=== PATIENT | male | born 1990 | race African-American/Black ===

== ENCOUNTER 2022-01-01 09:35 | Emergency (ER) | payer SELFPAY ==
[2022-01-01] MEDS ORDERED: CHERRY SYRUP 10 ML UDC PO ONE (11:57)
[2022-01-01] MEDS ORDERED: DEXAMETHASONE 10 MG/ML VIAL PO STA (11:57)
--- NOTE | 2022-01-01 12:00 | ED Physician Documentation ---
PD HPI UPPER EXT INJURY - Stated complaint Stated Complaint: WRIST PX - Chief complaint Chief Complaint: Ext Problem - History obtained from History obtained from: Patient - History of Present Illness Location: Left, Wrist Type of injury: Other (overuse at work) Where injury occurred: Work Timing - onset: How many days ago (5) Timing - duration: Days (5) Timing - details: Gradual onset, Still present Improved by: Rest, Immobilization Worsened by: Moving, Palpating Associated symptoms: No: Weakness, Numbness, Tingling, Swelling Contributing factors: No: Anticoagulated Similar symptoms before: Has not had sx before Recently seen: Not recently seen - Additonal information Additional information: 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 He recalls that he does not know of any specific injury to the area but 5 days ago at work he was working excessively on large tires and he believes this may have strained his forearm. He has not had this happen to him previously. He has not been working with this large equipment until recently. Review of Systems Constitutional: denies: Fever Eyes: denies: Decreased vision Ears: denies: Ear pain Nose: denies: Congestion Throat: denies: Sore throat Respiratory: denies: Cough GI: denies: Vomiting PD PAST MEDICAL HISTORY - Present Medications Home Medications: Ambulatory Orders Medication Instructions Recorded Confirmed No Known Home Medications 01/01/22 01/01/22 - Allergies Allergies/Adverse Reactions: Allergies Allergy/AdvReac Type Severity Reaction Status Date / Time No Known Drug Allergies Allergy Verified 01/01/22 10:02 PD ED PE NORMAL - Vitals Vital signs reviewed: Yes (normal) - General General: Alert and oriented X 3, No acute distress, Well developed/nourished - HEENT HEENT: Atraumatic, PERRL, EOMI - Respiratory Respiratory: No respiratory distress - Derm Derm: Normal color, Warm and dry, No rash - Extremities Extremities: No deformity, No edema, Other (mild tenderness to the volar and dorsal forearm. pain with flexion extension of wrist is to the forearm and dorsal wrist. No swelling. 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, No motor deficit, No sensory deficit, Normal speech Eye Opening: Spontaneous Motor: Obeys Commands Verbal: Oriented GCS Score: 15 - Psych Psych: Normal mood, Normal affect Results - Vitals Vitals: Vital Signs - 24 hr 01/01/22 01/01/22 09:58 12:35 Temperature 36.6 C 36.6 C Heart Rate 64 68 Respiratory 16 16 Rate Blood Pressure 120/75 125/74 O2 Saturation 100 99 Oxygen O2 Source Room air - Rads (name of study) wrist' Radiology: Prelim report reviewed (Impression: Unremarkable left wrist radiographs.), EMP read indepedently, See rad report PD MEDICAL DECISION MAKING - ED course Complexity details: considered differential, d/w patient ED course: 31-year-old male with a myofascial strain to his forearms is administered dexamethasone 10 mg orally I encouraged the patient to take some ibuprofen as needed for pain and we will put him out of work for 5 days. Departure - Departure Disposition: 01 Home, Self Care Clinical Impression: Acute myofascial strain Instructions: ED Strain Muscle Ext Follow-Up: [facility] [Provider Group] Comments: Param today looks like you have a myofascial strain or a strain between the muscle and the tendons from over use of your forearms. The recommendation is to reduce your activity entirely for at least 5 days and to use ibuprofen for pain control. The expectation is to have resolution of this pain, and your arms should be stronger with resolution. Forms: Activity restrictions Discharge Date/Time: 01/01/22 12:38
[2022-01-01 12:37] VITALS: BP 125/74
--- NOTE | 2022-01-01 12:40 | XRAY Report ---
PROCEDURE: Wrist 4 View LT INDICATIONS: dorsal wrist pain TECHNIQUE: 4 views of the wrist were acquired. COMPARISON: None FINDINGS: Bones: No fractures or dislocations. No suspicious bony lesions. Scaphoid view: Unremarkable Soft tissues: No suspicious soft tissue calcifications. IMPRESSION: Unremarkable left wrist radiographs Reviewed by: Kristopher Yu MD on 01/01/2022 11:39 AM [email or web address] Approved by: Kristopher Yu MD on 01/01/2022 11:39 AM [facility] Station ID: [id number]
== END 2022-01-01 12:38 | disposition home or self-care (01) ==
LOC: ED 09:35
DX: S66.812A Strain of other specified muscles, fascia and tendons at wrist and hand level, left hand, initial encounter (principal); X50.0XXA Overexertion from strenuous movement or load, initial encounter
CPT/HCPCS: 73110; 99282; 99283; A9270

== ENCOUNTER 2023-03-12 10:30 | Outpatient (CLI) | payer OTHER | END 2023-03-12 10:45 | disposition home or self-care (01) | LOC: LAB.N 10:30 | PROVIDERS: ATTEND Registered Nurse | DX: K21.9 Gastro-esophageal reflux disease without esophagitis (principal); R11.10 Vomiting, unspecified; R53.83 Other fatigue | CPT/HCPCS: 36415; 80053; 83690; 84443; 84478; 85025 ==

== ENCOUNTER 2023-03-17 15:34 | Outpatient (CLI) | payer OTHER ==
[2023-03-17 20:59] LABS: BASOPHILS # (AUTO) 0.1 10^3/uL (0.0-0.1); BASOPHILS % (AUTO) 0.6 %; EOSINOPHILS # (AUTO) 0.1 10^3/uL (0.0-0.7); EOSINOPHILS % (AUTO) 1.1 %; HCT - HEMATOCRIT 47.4 % (42.0-52.0); HGB - HEMOGLOBIN 15.5 g/dL (14.0-18.0); LYMPHOCYTES # (AUTO) 2.4 10^3/uL (1.5-3.5); LYMPHOCYTES % (AUTO) 21.1 %; MEAN CORPUSCULAR HEMOGLOBIN 26.8 pg (27.0-31.0); MEAN CORPUSCULAR HGB CONC 32.7 g/dL (32.0-36.0); MEAN PLATELET VOLUME 10.1 fL (7.4-11.4); MONOCYTES # (AUTO) 0.7 10^3/uL (0.0-1.0); MONOCYTES % (AUTO) 5.9 %; NEUTROPHILS % (AUTO) 71.1 %; PLT - PLATELET COUNT 325 10^3/uL (130-450); RED BLOOD COUNT 5.78 10^6/uL (4.70-6.10); RED CELL DISTRIBUTION WIDTH 13.3 % (12.0-15.0); WHITE BLOOD COUNT 11.2 x10^3/uL (4.8-10.8)
[2023-03-17 21:15] LABS: ALBUMIN 4.7 g/dL (3.2-5.5); ALBUMIN/GLOBULIN RATIO 1.5 (1.0-2.2); BILIRUBIN,TOTAL 0.4 mg/dL (0.2-1.0); CALCIUM 9.9 mg/dL (8.5-10.3); POTASSIUM 4.3 mmol/L (3.5-4.5); TOTAL PROTEIN 7.9 g/dL (6.4-8.9)
[2023-03-17 21:24] LABS: THYROID STIMULATING HORMONE 1.84 uIU/mL (0.34-5.60)
== END 2023-03-17 15:35 | disposition home or self-care (01) ==
LOC: LAB.N 15:34
PROVIDERS: ATTEND Registered Nurse
DX: K21.9 Gastro-esophageal reflux disease without esophagitis (principal); R11.10 Vomiting, unspecified; R53.83 Other fatigue; K52.9 Noninfective gastroenteritis and colitis, unspecified
CPT/HCPCS: 36415; 80053; 83690; 84443; 84478; 85025; 86364

== ENCOUNTER 2023-04-20 13:19 | Emergency (ER) | payer OTHER ==
[2023-04-20 14:30] LABS: RAPID STREP SCREEN Negative (Negative)
[2023-04-20 14:57] LABS: B. PARAPERTUSSIS- RESP PCR PAN NOT DETECTED; B. PERTUSSIS- RESP PCR PANEL NOT DETECTED; C. PNEUMONIAE- RESP PCR PANEL NOT DETECTED; CORONAVIRUS 229E-RESP PCR NOT DETECTED; CORONAVIRUS HKU1-RESP PCR NOT DETECTED; CORONAVIRUS NL63-RESP PCR NOT DETECTED; CORONAVIRUS OC43-RESP PCR NOT DETECTED; HUMAN METAPNEUMOVIRUS NOT DETECTED; INFLUENZA A- RESP PCR PANEL NOT DETECTED; INFLUENZA B - RESP PCR PANEL NOT DETECTED; M. PNEUMONIAE- RESP PCR PANEL NOT DETECTED; PARAINFLUENZA VIRUS 1 NOT DETECTED; PARAINFLUENZA VIRUS 2 NOT DETECTED; PARAINFLUENZA VIRUS 3 NOT DETECTED; PARAINFLUENZA VIRUS 4 NOT DETECTED; RHINOVIRUS/ENTEROVIRUS NOT DETECTED; RSV- RESP PCR PANEL NOT DETECTED; SARS-CoV-2 -RESP PCR PANEL NOT DETECTED
[2023-04-20] MEDS: CHERRY SYRUP 10 ML UDC PO ONE (15:39)
[2023-04-20] MEDS: DEXAMETHASONE 10 MG/ML VIAL PO STA (15:39)
--- NOTE | 2023-04-20 17:42 | ED Physician Documentation ---
History of Present Illness - Stated complaint Stated Complaint: CP/THROAT SWELLING - Chief complaint Chief Complaint: Heent - Additonal information Additional information: Patient 23-year-old male presenting to the emergency department with cough, congestion, sore throat, chest pain. [place] noted that he had prominent enlarged tonsils and sent him here for evaluation of tonsillitis as well as to get an EKG for his chest pain. He reports that he only has pain in the center of his chest when he is coughing. Denies any history of cardiac issues, shortness of breath while at rest but does report that he feels as though his overall exercise tolerance and stamina is decreased for the last few days. Review of Systems Constitutional: denies: Fever Eyes: denies: Loss of vision Ears: denies: Loss of hearing, Tinnitus/ringing Nose: reports: Rhinorrhea / runny nose, Congestion Cardiac: reports: Chest pain / pressure Respiratory: reports: Cough : denies: Dysuria Skin: denies: Rash PD PAST MEDICAL HISTORY - Past Medical History Past Medical History: Yes Psych: Depression, Anxiety - Past Surgical History Past Surgical History: No - Present Medications Home Medications: Ambulatory Orders Medication Instructions Recorded Confirmed Azithromycin [Zithromax] 0 mg PO DAILY #4 tablet 04/20/23 Oxymetazoline HCl [12 Hour Nasal 30 ml NS Q4HR #30 ml 04/20/23 [place]] Pseudoephedrine HCl [Sudafed 12 120 mg PO BID #15 tab 04/20/23 Hour] - Allergies Allergies/Adverse Reactions: Allergies Allergy/AdvReac Type Severity Reaction Status Date / Time No Known Drug Allergies Allergy Verified 01/01/22 10:02 - Social History Does the pt smoke?: No Smoking Status: Never smoker PD ED PE NORMAL - Vitals Vital signs reviewed: Yes - General General: Alert and oriented X 3, No acute distress, Well developed/nourished - HEENT HEENT: Atraumatic, PERRL, EOMI, Ears normal, Moist mucous membranes, Pharynx benign - Neck Neck: Supple, no meningeal sign, No bony TTP, No adenopathy, Thyroid normal, No JVD - Cardiac Cardiac: RRR, No gallop, Strong equal pulses - Respiratory Respiratory: No respiratory distress, Clear bilaterally - Abdomen Abdomen: Normal bowel sounds, Non tender - Male Male : Deferred - Rectal Rectal: Deferred - Back Back: No CVA TTP - Derm Derm: Normal color - Extremities Extremities: No deformity Results - Vitals Vitals: Vital Signs - 24 hr 04/20/23 13:43 Temperature 36.5 C Heart Rate 73 Respiratory 18 Rate Blood Pressure 138/83 H O2 Saturation 99 Oxygen O2 Source Room air - EKG (time done) 1526 EKG releavant findings:: EKG personally interpreted by author of this note. Relevant findings are: Sinus rhythm with rate 63 bpm. Normal axis. Normal DC, QRS, QTc intervals. No ST segment elevations or T wave inversions. - Labs Labs: Laboratory Tests 04/20/23 04/20/23 13:51 13:51 Nasal Adenovirus (PCR) NOT DETECTED Nasal B. parapertussis DNA (PCR) NOT DETECTED Nasal Coronavir 229E PCR NOT DETECTED Nasal Coronavir HKU1 PCR NOT DETECTED Nasal Coronavir NL63 PCR NOT DETECTED Nasal Coronavir OC43 PCR NOT DETECTED Nasal Enterovir/Rhinovir PCR NOT DETECTED Nasal Influenza B PCR NOT DETECTED Nasal Influenza A PCR NOT DETECTED Nasal Parainfluen 1 PCR NOT DETECTED Nasal Parainfluen 2 PCR NOT DETECTED Nasal Parainfluen 3 PCR NOT DETECTED Nasal Parainfluen 4 PCR NOT DETECTED Nasal RSV (PCR) NOT DETECTED Nasal B.pertussis DNA PCR NOT DETECTED Nasal C.pneumoniae (PCR) NOT DETECTED Ross Human Metapneumo PCR NOT DETECTED Nasal M.pneumoniae (PCR) NOT DETECTED Nasal SARS-CoV-2 (PCR) NOT DETECTED Group A Strep Rapid Negative PD Medical Decision Making - ED course Complexity details: reviewed results, re-evaluated patient, d/w patient ED course: Patient otherwise healthy 23-year-old male presenting to the emergency department with chief complaints cough, congestion, chest pain, sore throat. Afebrile, he medically stable arrival to the emergency department. Notably had enlarged tonsils without exudates. No particular jugulodigastric or posterior cervical adenopathy was appreciated. He did have a small amount of fluid behind his left tympanic membrane but no signs of erythema that would be suggestive of middle ear infection. Overall he had clear aeration in all lung escobar as well as a normal cardiac exam here in the emergency department. I did obtain an EKG which was negative for indications of acute cardiac ischemia or dysrhythmia. His labs in the emergency department including strep and viral screening were negative. His chest x-ray does have a area of opacification in the left lower lobe and per my interpretation appears to be a small area of consolidation concerning for early or developing pneumonia. Discussed my interpretation of the chest x-ray as well as the findings with the patient and he is agreeable to a course of azithromycin. First dose given here in the emergency department. Additionally he was given a dose of Decadron for his sore throat. Will discharge with short course antibiotic as well as oral and nasal decongestant. Will encourage careful follow-up with primary care doctor. Clear return precautions given prior to discharge. Departure - Departure Disposition: Home, Self Care Clinical Impression: PNA (pneumonia) Qualifiers: Pneumonia type: due to unspecified organism Laterality: left Lung location: lower lobe of lung Qualified Code(s): J18.9 - Pneumonia, unspecified organism Pharyngitis Qualifiers: Pharyngitis/tonsillitis etiology: unspecified etiology Qualified Code(s): J02.9 - Acute pharyngitis, unspecified Instructions: ED Pneumonia Adult Prescriptions: Oxymetazoline HCl [12 Hour Nasal [place]] 30 ml NS Q4HR #30 ml Pseudoephedrine HCl [Sudafed 12 Hour] 120 mg PO BID #15 tab Azithromycin [Zithromax] 0 mg PO DAILY #4 tablet Comments: [facility] The testing performed in the emergency department today was overall very reassuring. Your strep pharyngitis screening test was negative however this will be sent for culture and further testing and if it is positive we will contact you in the next few days. As we discussed I am concerned about a small area of opacification on your chest x-ray that I believe could represent a developing pneumonia. You are given a first dose of antibiotic here in the emergency department. I will be discharging you with a course of antibiotics to begin tomorrow as well as some oral and nasal decongestants to take at home. [id number] Motrin, Tylenol, throat lozenges and salt water gargles can also be very helpful to help with any fever, body ache or sore throat. Otherwise please drink plenty fluids and get plenty of rest. If it anytime you have new or worsening symptoms please return to the emergency department.
[2023-04-20] MEDS: AZITHROMYCIN 250 MG TABLET PO STA (17:51)
[2023-04-20 18:09] VITALS: BP 130/80; O2SAT 100
== END 2023-04-20 18:00 | disposition home or self-care (01) ==
LOC: ED 13:19
DX: J18.9 Pneumonia, unspecified organism (principal); J02.9 Acute pharyngitis, unspecified; Z11.52 Encounter for screening for COVID-19
CPT/HCPCS: 71046; 87070; 87430; 87633; 93005; 99284; A9270

== ENCOUNTER 2023-05-07 13:57 | Emergency (ER) | payer OTHER ==
[2023-05-07 14:43] LABS: BASOPHILS # (AUTO) 0.1 10^3/uL (0.0-0.1); EOSINOPHILS # (AUTO) 0.2 10^3/uL (0.0-0.7); EOSINOPHILS % (AUTO) 2.1 %; HCT - HEMATOCRIT 47.3 % (42.0-52.0); HGB - HEMOGLOBIN 15.6 g/dL (14.0-18.0); LYMPHOCYTES # (AUTO) 2.5 10^3/uL (1.5-3.5); MEAN CORPUSCULAR HEMOGLOBIN 26.8 pg (27.0-31.0); MEAN CORPUSCULAR VOLUME 81.1 fL (80.0-94.0); MEAN PLATELET VOLUME 9.1 fL (7.4-11.4); MONOCYTES # (AUTO) 0.5 10^3/uL (0.0-1.0); MONOCYTES % (AUTO) 7.3 %; NEUTROPHILS # (AUTO) 3.9 10^3/uL (1.5-6.6); NEUTROPHILS % (AUTO) 54.5 %; PLT - PLATELET COUNT 343 10^3/uL (130-450); RED BLOOD COUNT 5.83 10^6/uL (4.70-6.10); RED CELL DISTRIBUTION WIDTH 13.5 % (12.0-15.0); WHITE BLOOD COUNT 7.2 x10^3/uL (4.8-10.8)
[2023-05-07 15:00] LABS: ALBUMIN 4.6 g/dL (3.2-5.5); ALBUMIN/GLOBULIN RATIO 1.2 (1.0-2.2); BILIRUBIN,TOTAL 0.5 mg/dL (0.2-1.0); CALCIUM 9.9 mg/dL (8.5-10.3); CREATININE 0.9 mg/dL (0.6-1.3); TOTAL PROTEIN 8.3 g/dL (6.4-8.9)
[2023-05-07] MEDS ORDERED: MAG HYDROX/AL HYDROX/SIMETH 30 ML UDC PO STA (15:22)
[2023-05-07] MEDS ORDERED: LIDOCAINE VISCOUS 2% 15 ML ORAL SYRINGE MM STA (15:23)
--- NOTE | 2023-05-07 16:03 | ED Physician Documentation ---
PD HPI ABD PAIN - Stated complaint Stated Complaint: STOMACH PX - Chief complaint Chief Complaint: Abd Pain - History obtained from History obtained from: Patient - Additional information Additional information: Patient is a 23-year-old male presenting for evaluation of epigastric abdominal pain for the past 3 days. Patient has a history of indigestion and is on pantoprazole. He also has a long history of reportedly waking up in the middle night with episodes of vomiting. He states he does not have nausea prior to the vomiting. He states that if he does not sleep at night due to his insomnia that he does not have these episodes. He does get Reglan for this. He states that for the last 3 days he has had some upper abdominal discomfort. Nothing makes it better or worse. He does have a lactose intolerance but does enjoy dairy and drinks a lot of milk. He denies eating spicy or citrusy or acidic food but does occasionally have some fried food including over the last few days. No di arrhea. No fever, chest pain or shortness of air. He did see his PCP last week through the [employer] [facility] and was told that if he continues to have symptoms he should have an upper endoscopy by GI. Review of Systems Constitutional: denies: Fever Cardiac: denies: Chest pain / pressure Respiratory: denies: Dyspnea GI: reports: Abdominal Pain, Vomiting. denies: Nausea : denies: Dysuria PD PAST MEDICAL HISTORY - Past Medical History Psych: Depression, Anxiety - Past Surgical History Past Surgical History: No - Present Medications Home Medications: Ambulatory Orders Medication Instructions Recorded Confirmed Metoclopramide [Reglan] 10 mg PO DAILY 05/07/23 Pantoprazole [Protonix] 40 mg PO DAILY 05/07/23 - Allergies Allergies/Adverse Reactions: Allergies Allergy/AdvReac Type Severity Reaction Status Date / Time No Known Drug Allergies Allergy Verified 05/07/23 14:06 - Social History Does the pt smoke?: No Smoking Status: Never smoker Does the pt drink ETOH?: No Does the pt have substance abuse?: No - Immunizations Immunizations are current?: Yes - POLST Patient has POLST: No PD ED PE NORMAL - General General: Alert and oriented X 3, No acute distress, Well developed/nourished - HEENT HEENT: Atraumatic, Moist mucous membranes, Pharynx benign - Neck Neck: Supple, no meningeal sign - Cardiac Cardiac: RRR, Strong equal pulses - Respiratory Respiratory: No respiratory distress, Clear bilaterally - Abdomen Abdomen: Normal bowel sounds, Soft, Non distended, Other (Very mild epigastric tenderness on palpation, no right upper quadrant tenderness Or lower abdominal tenderness) - Derm Derm: Warm and dry - Neuro Neuro: Normal speech Results - Vitals Vitals: Vital Signs - 24 hr 05/07/23 05/07/23 14:00 16:11 Temperature 36.6 C Heart Rate 89 84 Respiratory 17 18 Rate Blood Pressure 136/70 H 142/108 H O2 Saturation 99 100 Oxygen O2 Source Room air - Labs Labs: Laboratory Tests 05/07/23 05/07/23 14:39 14:39 WBC 7.2 RBC 5.83 Hgb 15.6 Hct 47.3 MCV 81.1 MCH 26.8 L MCHC 33.0 RDW 13.5 Plt Count 343 MPV 9.1 Neut # (Auto) 3.9 Lymph # (Auto) 2.5 [place] # (Auto) 0.5 Eos # (Auto) 0.2 Baso # (Auto) 0.1 Absolute Nucleated RBC 0.00 Nucleated RBC % 0.0 Sodium 135 Potassium 4.0 Chloride 105 Carbon Dioxide 25 Anion Gap 5.0 L BUN 8 Creatinine 0.9 Estimated GFR (MDRD) 126 Glucose 128 H Calcium 9.9 Total Bilirubin 0.5 AST 18 ALT 28 Alkaline Phosphatase 98 Total Protein 8.3 Albumin 4.6 Globulin 3.7 Albumin/Globulin Ratio 1.2 Lipase 18 PD Medical Decision Making - ED course Complexity details: reviewed results, re-evaluated patient, d/w patient ED course: Patient is a 23-year-old male presenting for evaluation of epigastric abdominal pain. Very mild tenderness noted on exam. He has been tolerating p.o. today. Denies drug or alcohol use but does vape. No abdominal surgeries. CBC and chemistries were obtained and reviewed without significant findings. Feeling somewhat better after GI cocktail. He is already on Reglan and pantoprazole. Discussed diet modifications as well as need for close follow-up with PCP as he likely needs an upper endoscopy which were not able to do in the emergency department. Patient counseled on concerning symptoms to return for. Departure - Departure Disposition: 01 Home, Self Care Clinical Impression: Epigastric abdominal pain Condition: Stable Instructions: ED Epigastric Pain [facility] Follow-Up: [facility] [Provider Group] Comments: Your blood tests today are reassuring with normal electrolytes. I do think you need a referral to a tire inspector and need a procedure called an upper endoscopy which is a procedure where the GI doctor would take a camera to take a look into your esophagus and stomach. In the meanwhile you do need to eliminate anything that could be exacerbating your indigestion or GERD including dairy, spicy, tomato, citrusy foods. Please have close follow-up with your primary care doctor. Return to the ER with any worsening. Forms: PCP List, Activity restrictions Discharge Date/Time: 05/07/23 16:11
[2023-05-07 16:18] VITALS: BP 142/108; O2SAT 100
== END 2023-05-07 16:11 | disposition home or self-care (01) ==
LOC: ED 13:57
DX: R10.13 Epigastric pain (principal)
CPT/HCPCS: 36415; 80053; 83690; 85025; 99283; A9270

== ENCOUNTER 2023-05-19 02:24 | Emergency (ER) | payer OTHER ==
--- NOTE | 2023-05-19 09:10 | XRAY Report ---
PROCEDURE: Chest 1V INDICATIONS: lower R CP TECHNIQUE: One view of the chest was acquired. COMPARISON: 04.20.23 FINDINGS: Surgical changes and devices: None. Lungs and pleura: No pleural effusions or pneumothorax. Lungs are clear. Mediastinum: Mediastinal contours appear normal. Heart size is normal. Bones and chest wall: No suspicious bony lesions. Overlying soft tissues appear unremarkable. IMPRESSION: No acute cardiopulmonary process. Reviewed by: Shaggy Santos MD on 05/19/2023 9:09 AM [facility] Approved by: Shaggy Santos MD on 05/19/2023 9:09 AM [facility] Station ID: [id number]
[2023-05-19 09:24] LABS: BASOPHILS # (AUTO) 0.1 10^3/uL (0.0-0.1); BASOPHILS % (AUTO) 1.2 %; EOSINOPHILS # (AUTO) 0.1 10^3/uL (0.0-0.7); EOSINOPHILS % (AUTO) 2.4 %; HCT - HEMATOCRIT 45.6 % (42.0-52.0); HGB - HEMOGLOBIN 14.9 g/dL (14.0-18.0); LYMPHOCYTES # (AUTO) 2.4 10^3/uL (1.5-3.5); LYMPHOCYTES % (AUTO) 41.5 %; MEAN CORPUSCULAR HEMOGLOBIN 26.9 pg (27.0-31.0); MEAN CORPUSCULAR HGB CONC 32.7 g/dL (32.0-36.0); MEAN CORPUSCULAR VOLUME 82.3 fL (80.0-94.0); MEAN PLATELET VOLUME 9.2 fL (7.4-11.4); MONOCYTES # (AUTO) 0.6 10^3/uL (0.0-1.0); MONOCYTES % (AUTO) 10.1 %; NEUTROPHILS # (AUTO) 2.6 10^3/uL (1.5-6.6); NEUTROPHILS % (AUTO) 44.6 %; PLT - PLATELET COUNT 335 10^3/uL (130-450); RED BLOOD COUNT 5.54 10^6/uL (4.70-6.10); RED CELL DISTRIBUTION WIDTH 13.2 % (12.0-15.0); WHITE BLOOD COUNT 5.9 x10^3/uL (4.8-10.8)
[2023-05-19 09:41] LABS: ALBUMIN 4.6 g/dL (3.2-5.5); ALBUMIN/GLOBULIN RATIO 1.5 (1.0-2.2); BILIRUBIN,TOTAL 0.5 mg/dL (0.2-1.0); POTASSIUM 4.5 mmol/L (3.5-4.5); TOTAL PROTEIN 7.6 g/dL (6.4-8.9)
--- NOTE | 2023-05-19 10:44 | ED Physician Documentation ---
PD HPI ABD PAIN - Stated complaint Stated Complaint: N/V/D/R SIDE PX - Chief complaint Chief Complaint: Abd Pain - History obtained from History obtained from: Patient - Additional information Additional information: Patient is a 23-year-old male presenting for ongoing issues with vomiting at night, difficulty with sleep and having intermittent episodes of right upper quadrant pain. Patient states that this has been ongoing for at least 7 months. He was seen here earlier this year with similar symptoms due to difficulties with sleep and reports waking up at night vomiting. He is post to have follow- up at the [facility] but this is not for another few weeks. He continues on omeprazole. He states that he has been trying to avoid any foods that may trigger his symptoms. He states the last 2 days he has had intermittent episodes of pain in the right upper quadrant. Last night he had eggs and rice with onions. He states that he did have an episode of emesis last night. He is prescribed Reglan which she states does not really help him. Denies fever. No chest pain, shortness of air, diarrhea. States he often has difficulty with sleeping and has not really slept well in the last 2 days. Has tried melatonin for this in the past without any improvement. Is concerned he has sleep apnea. Review of Systems Constitutional: denies: Fever Cardiac: denies: Chest pain / pressure Respiratory: denies: Dyspnea GI: reports: Abdominal Pain, Vomiting. denies: Diarrhea : denies: Dysuria PD PAST MEDICAL HISTORY - Past Medical History Past Medical History: Yes Psych: Depression, Anxiety - Past Surgical History Past Surgical History: No - Present Medications Home Medications: Ambulatory Orders Medication Instructions Recorded Confirmed Omeprazole Magnesium [Prilosec] 10 mg PO DAILY 05/19/23 05/19/23 Venlafaxine [Effexor] 37.5 mg PO DAILY 05/19/23 05/19/23 - Allergies Allergies/Adverse Reactions: Allergies Allergy/AdvReac Type Severity Reaction Status Date / Time lactose AdvReac Cramps Verified 05/19/23 03:15 - Social History Does the pt smoke?: Yes Smoking Status: Current every day smoker Does the pt drink ETOH?: No Does the pt have substance abuse?: No - Immunizations Immunizations are current?: Yes - POLST Patient has POLST: No PD ED PE NORMAL - General General: Alert and oriented X 3, No acute distress, Well developed/nourished - HEENT HEENT: Atraumatic, Moist mucous membranes, Pharynx benign - Neck Neck: Supple, no meningeal sign - Cardiac Cardiac: RRR, Strong equal pulses - Respiratory Respiratory: No respiratory distress, Clear bilaterally - Abdomen Abdomen: Normal bowel sounds, Soft, Non tender, Non distended - Derm Derm: Warm and dry - Neuro Neuro: Normal speech Results - Vitals Vitals: Vital Signs - 24 hr 05/19/23 05/19/23 03:08 10:53 Temperature 36.2 C L 36.4 C L Heart Rate 95 76 Respiratory 15 16 Rate Blood Pressure 134/69 H 149/68 H O2 Saturation 97 100 Oxygen O2 Source Room air - Labs Labs: Laboratory Tests 05/19/23 05/19/23 09:17 09:17 WBC 5.9 RBC 5.54 Hgb 14.9 Hct 45.6 MCV 82.3 MCH 26.9 L MCHC 32.7 RDW 13.2 Plt Count 335 MPV 9.2 Neut # (Auto) 2.6 Lymph # (Auto) 2.4 Real # (Auto) 0.6 Eos # (Auto) 0.1 Baso # (Auto) 0.1 Absolute Nucleated RBC 0.00 Nucleated RBC % 0.0 Sodium 135 Potassium 4.5 Chloride 104 Carbon Dioxide 24 Anion Gap 7.0 BUN 10 Creatinine 1.0 Estimated GFR (MDRD) 111 Glucose 125 H Calcium 10.0 Total Bilirubin 0.5 AST 20 ALT 29 Alkaline Phosphatase 96 Total Protein 7.6 Albumin 4.6 Globulin 3.0 Albumin/Globulin Ratio 1.5 Lipase 14 PD Medical Decision Making - ED course Complexity details: reviewed results, d/w patient ED course: Patient is a 23-year-old male Presenting for evaluation of ongoing episodes of vomiting and difficulty with sleep. He is awaiting a referral to GI from the [facility]. Patient had a prolonged wait time due to ED volumes. On my evaluation he has no tenderness on exam. Vital signs are stable. Labs including CBC and chemistries were obtained and reviewed and without significant findings. When I asked the patient where his pain is he points to the lower right lower rib border so an x-ray was obtained which I reviewed and I see no signs of fracture or other issues. An ultrasound was also ordered and there is no biliary pathology seen. On my reevaluation patient is sleeping. He says that he has had ongoing issues with sleep. Sometimes he will take a nap in the middle of the day and sleep for 8 hours. Breast understanding about his ongoing symptoms but that workup here today in the emergency department has not revealed an emergent cause for his symptoms and that he likely needs more testing such as referral to GI and possibly a sleep study. For the time being I did recommend a trial of Benadryl at night to see if this helps with his sleep as well as could help with the nausea and vomiting. Patient counseled on concerning symptoms to return for. Departure - Departure Disposition: Home, Self Care Clinical Impression: Vomiting, Sleep difficulties Condition: Stable Instructions: ED Insomnia, ED Nausea Vomiting, ED Epigastric Pain O Follow-Up: [facility] [Provider Group] Comments: Your testing today does not identify an emergent condition that needs immediate treatment but you do need close follow-up with your PCP at the [facility] as you likely need further testing. You may need a test for sleep apnea and an EGD which is a scope that looks inside your stomach. You can try Benadryl 25 mg at night to see if this helps you sleep. I would limit napping during the daytime. Your electrolytes are normal. Please continue to avoid anything that might irritate your stomach and do not sleep right after eating. Return to the ER with any new or worsening symptoms. Forms: PCP List, Activity restrictions Discharge Date/Time: 05/19/23 10:56
[2023-05-19 11:02] VITALS: BP 149/68; O2SAT 100
--- NOTE | 2023-05-19 11:22 | Ultrasound Report ---
PROCEDURE: Abdomen Limited INDICATIONS: RUQ pain TECHNIQUE: Real-time focused scanning was performed of the abdomen, with image documentation. COMPARISONS: None. FINDINGS: The liver measures 12 cm. Increased echogenicity is seen. Gallbladder is unremarkable. No stones or focal tenderness. Biliary tree and pancreas are not well seen due to bowel gas. Right kidney measures 9 cm. IMPRESSION: Increased hepatic echogenicity is nonspecific, most commonly seen with steatosis. No acute gallbladder abnormality. Biliary tree not well seen due to bowel gas. Reviewed by: Jayy Guerra MD on 05/19/2023 11:21 AM PST Approved by: Jayy Guerra MD on 05/19/2023 11:21 AM PST Station ID: [id number]
== END 2023-05-19 10:56 | disposition home or self-care (01) ==
LOC: ED 02:24
DX: R11.2 Nausea with vomiting, unspecified (principal); F17.200 Nicotine dependence, unspecified, uncomplicated; Z72.820 Sleep deprivation
CPT/HCPCS: 36415; 80053; 83690; 85025; 99283; 99284

== ENCOUNTER 2023-05-28 00:36 | Emergency (ER) | payer OTHER ==
[2023-05-28] MEDS ORDERED: HYDROmorphone 1 MG/ML CARPUJECT ONE (01:42)
--- NOTE | 2023-05-28 02:28 | ED Physician Documentation ---
History of Present Illness - Stated complaint Stated Complaint: ABD PX - Chief complaint Chief Complaint: General - History obtained from History obtained from: Patient - Additonal information Additional information: The pt comes to the ED for CC of heartburn feeling in his chest. The pt has been seen many times for chest and abdominal discomfort, with no specific findings. He is being referred to [facility] by [facility] [employer]. No SOB. No fevers or cough. No LE swelling. No other complaints at this time. Sx started tonight. PD PAST MEDICAL HISTORY - Past Medical History GI: GERD Psych: Depression, Anxiety - Past Surgical History Past Surgical History: No - Present Medications Home Medications: Ambulatory Orders Medication Instructions Recorded Confirmed Omeprazole Magnesium [Prilosec] 10 mg PO DAILY 05/19/23 05/28/23 Venlafaxine [Effexor] 37.5 mg PO DAILY 05/19/23 05/28/23 - Allergies Allergies/Adverse Reactions: Allergies Allergy/AdvReac Type Severity Reaction Status Date / Time lactose AdvReac Cramps Verified 05/28/23 00:59 - Social History Does the pt smoke?: Yes Smoking Status: Current every day smoker Does the pt drink ETOH?: No Does the pt have substance abuse?: No - Immunizations Immunizations are current?: Yes - POLST Patient has POLST: No PD ED PE NORMAL - Vitals Vital signs reviewed: Yes - General General: Alert and oriented X 3, No acute distress - HEENT HEENT: Atraumatic, EOMI, Moist mucous membranes - Neck Neck: Supple, no meningeal sign - Cardiac Cardiac: RRR, No murmur - Respiratory Respiratory: No respiratory distress, Clear bilaterally - Abdomen Abdomen: Soft, Non distended, Other (MIld epigastric tend, no rebound or guarding.) - Derm Derm: Warm and dry - Extremities Extremities: No deformity - Neuro Neuro: Alert and oriented X 3 - Psych Psych: Normal mood, Normal affect Results - Vitals Vitals: Oxygen O2 Source Room air - EKG (time done) 0129 EKG releavant findings:: EKG personally interpreted by author of this note. Relevant findings are: Rate: Rate (enter#) (71) Rhythm: NSR [place]: Normal Intervals: Normal [place] QRS: Normal Ischemia: Normal ST segments Compare to prior EKG: Old EKG unavailable Computer interpretation: Agree with computer - Rads (name of study) CXR Relevant Findings:: Prelim report reviewed, See rad report (Overnight radiologist read: [id number]) PD Medical Decision Making - ED course Complexity details: reviewed old records, reviewed results, re-evaluated patient, considered differential, d/w patient ED course: The pt was worked up with CXR and EKG, both of which were unremarkable. I reviewed the pt's old records, and found that he had been to the ED repeatedly for related sx, and worked up extensively. I did not feel repeat workup was indicated today. The pt was stable for d/c home. We have discussed the usual indications for follow-up and return. Departure - Departure Disposition: Home, Self Care Clinical Impression: Chest pain Qualifiers: Chest pain type: unspecified Qualified Code(s): R07.9 - Chest pain, unspecified Insomnia Qualifiers: Insomnia type: unspecified Qualified Code(s): G47.00 - Insomnia, unspecified Condition: Stable Instructions: ED Chest Pain Atypical Unkn Cause Comments: Your EKG and chest x-ray look good. There is no evidence of an emergent condition causing your chest pain. Please continue to work with your primary doctor on getting to the bottom of your symptoms. Forms: PCP List, Activity restrictions Discharge Date/Time: 05/28/23 03:23
[2023-05-28] MEDS: MAG HYDROX/AL HYDROX/SIMETH 30 ML UDC PO STA (02:36)
[2023-05-28] MEDS: LIDOCAINE VISCOUS 2% 15 ML ORAL SYRINGE MM STA (02:36)
[2023-05-28] MEDS: HYDROmorphone 1 MG/ML CARPUJECT IVP ONE (02:40)
[2023-05-28 03:31] VITALS: BP 152/90; O2SAT 99
--- NOTE | 2023-05-28 09:07 | XRAY Report ---
PROCEDURE: Chest 1V INDICATIONS: chest pain TECHNIQUE: One view of the chest was acquired. COMPARISON: Single view the chest dated 05/19/2023, 04/20/2023 FINDINGS: Surgical changes and devices: None. Lungs and pleura: No pleural effusions or pneumothorax . No acute airspace opacities. A 1.0 cm radio paque nodule is projected over the left lower lung. Mediastinum: Mediastinal contours appear normal. Heart size is normal. Bones and chest wall: No suspicious bony lesions. Overlying soft tissues appear unremarkable. IMPRESSION: No acute cardiopulmonary process. Left lower lung pulmonary nodule versus overlying soft tissue shadow. Please note, this is discordant with the overnight interpretation. Neoplasm cannot be excluded. Consider short interval follow-up or CT of the chest to further characterize this finding. Reviewed by: Laura Madrid MD on 05/28/2023 9:06 AM [facility] Approved by: Laura Madrid MD on 05/28/2023 9:06 AM [facility] Station ID: [id number]
== END 2023-05-28 03:23 | disposition home or self-care (01) ==
LOC: ED 00:36
DX: R07.9 Chest pain, unspecified (principal); G47.00 Insomnia, unspecified; F17.200 Nicotine dependence, unspecified, uncomplicated
CPT/HCPCS: 71045; 93005; 99283; A9270

== ENCOUNTER 2023-06-11 21:58 | Emergency (ER) | payer OTHER ==
[2023-06-11] MEDS: KETOROLAC 30 MG/ML VIAL IM STA (22:39)
--- NOTE | 2023-06-11 22:45 | XRAY Report ---
PROCEDURE: Chest 2V INDICATIONS: chest pain, cough TECHNIQUE: 2 views of the chest were acquired. COMPARISON: 05/28/2023. FINDINGS: Surgical changes and devices: None. Lungs and pleura: No pleural effusions or pneumothorax. Stable nodular opacity within the left mid/ lower lung field. Lungs are otherwise clear. Mediastinum: Mediastinal contours appear normal. Heart size is normal. Bones and chest wall: No suspicious bony lesions. Overlying soft tissues appear unremarkable. IMPRESSION: 1.No acute cardiopulmonary process. 2.Stable nodular opacity within the left mid/lower lung field. Recommend follow-up radiograph to asse ss stability. Reviewed by: Rupesh Fu MD on 06/11/2023 10:43 PM PST Approved by: Rupesh Fu MD on 06/11/2023 10:43 PM PST Station ID: [id number]
--- NOTE | 2023-06-11 23:44 | ED Physician Documentation ---
History of Present Illness - Stated complaint Stated Complaint: CORNEJO/CHEST PX - Chief complaint Chief Complaint: Resp - History obtained from History obtained from: Patient - Additonal information Additional information: 23yM with pmh pneumonia, gerd, daily smoker, p/w cough productive of clear sputum, sore throat , frontal headache, chest pain, weakness X 3 days. denies soa, n/v/d urinary sx, back pain abdominal pain, leg swelling or hemoptysis. denies fever Review of Systems Constitutional: reports: Myalgias, Fatigue. denies: Fever, Chills Throat: reports: Sore throat Cardiac: reports: Chest pain / pressure. denies: Palpitations Respiratory: reports: Cough. denies: Dyspnea GI: denies: Abdominal Pain, Nausea, Vomiting, Diarrhea PD PAST MEDICAL HISTORY - Past Medical History Past Medical History: Yes Respiratory: Pneumonia, Tuberculosis GI: GERD Psych: Depression, Anxiety, Other Other Past Medical History: Insomnia - Past Surgical History Past Surgical History: No - Present Medications Home Medications: Ambulatory Orders Medication Instructions Recorded Confirmed Omeprazole Magnesium [Prilosec] 10 mg PO DAILY 05/19/23 06/11/23 - Allergies Allergies/Adverse Reactions: Allergies Allergy/AdvReac Type Severity Reaction Status Date / Time lactose AdvReac Cramps Verified 06/11/23 22:18 - Social History Does the pt smoke?: Yes Smoking Status: Current every day smoker Does the pt drink ETOH?: No Does the pt have substance abuse?: No - Immunizations Immunizations are current?: Yes - POLST Patient has POLST: No PD ED PE NORMAL - Vitals Vital signs reviewed: Yes - General General: Alert and oriented X 3, No acute distress, Well developed/nourished - HEENT HEENT: Atraumatic, PERRL, EOMI, Moist mucous membranes, Pharynx benign, Other (BL tonsillar enlargement) - Neck Neck: Supple, no meningeal sign - Cardiac Cardiac: RRR - Respiratory Respiratory: No respiratory distress, Clear bilaterally - Abdomen Abdomen: Non tender, Non distended - Derm Derm: Normal color, Warm and dry - Extremities Extremities: No calf tenderness / cord Results - Vitals Vitals: Vital Signs - 24 hr 06/11/23 22:12 Temperature 36.7 C Heart Rate 90 Respiratory 16 Rate Blood Pressure 138/84 H O2 Saturation 98 Oxygen O2 Source Room air PD Medical Decision Making - ED course ED course: 23yM presents with viral uri symptoms X 3 days, well appearing with benign exam. cxr stable from previous. Body aches, cp and headache improved s/p IM toradol. symptomatic care discussed and return precautions given. Departure - Departure Disposition: 01 Home, Self Care Clinical Impression: Chest pain, Cough, Headache, Sore throat Condition: Stable Instructions: ED Viral Syndrome Comments: You were seen in the emergency department for medical evaluation. You most likely have a virus. Stay well hydrated, get lots of rest and stay home till you're feeling better. Please follow-up with your primary care provider and return to the emergency department if you have any new or worsening symptoms or other concerns. Forms: PCP List, Activity restrictions
[2023-06-11 23:58] VITALS: BP 137/83; O2SAT 92
== END 2023-06-11 23:53 | disposition home or self-care (01) ==
LOC: ED 21:58
DX: R07.9 Chest pain, unspecified (principal); R05.9 Cough, unspecified; R51.9 Headache, unspecified; J02.9 Acute pharyngitis, unspecified; F17.200 Nicotine dependence, unspecified, uncomplicated
CPT/HCPCS: 96372; 99283

== ENCOUNTER 2023-06-22 08:04 | Emergency (ER) | payer OTHER ==
[2023-06-22 08:16] VITALS: BP 132/87; O2SAT 99
--- NOTE | 2023-06-22 08:43 | ED Physician Documentation ---
History of Present Illness - Stated complaint Stated Complaint: COUGH,CONGESTION,CORNEJO,DIARRHEA,VOMITING - Chief complaint Chief Complaint: Resp - Additonal information Additional information: Patient 23-year-old male presenting the emergency department with 3-4-day cough, congestion. who is present at bedside has similar symptoms. Their daughter was sick approximately 1 week ago. Has been managing symptoms at home with Tylenol. Has had intermittent episodes of vomiting. Review of Systems Constitutional: reports: Fever Eyes: denies: Loss of vision Ears: denies: Loss of hearing Nose: reports: Rhinorrhea / runny nose, Congestion Throat: reports: Sore throat Cardiac: denies: Chest pain / pressure Respiratory: reports: Cough. denies: Dyspnea GI: reports: Nausea, Vomiting. denies: Abdominal Pain PD PAST MEDICAL HISTORY - Past Medical History Past Medical History: Yes Respiratory: Pneumonia, Tuberculosis GI: GERD Psych: Depression, Anxiety, Other - Past Surgical History Past Surgical History: No - Present Medications Home Medications: Ambulatory Orders Medication Instructions Recorded Confirmed Omeprazole Magnesium [Prilosec] 10 mg PO DAILY 05/19/23 06/11/23 Ibuprofen [Motrin] 800 mg PO Q8H PRN #30 tablet 06/22/23 Ondansetron Odt [Zofran] 4 mg TL Q6H PRN #10 tablet 06/22/23 Pseudoephedrine HCl [Sudafed 240 mg PO DAILY #10 tab 06/22/23 24-Hour] - Allergies Allergies/Adverse Reactions: Allergies Allergy/AdvReac Type Severity Reaction Status Date / Time lactose AdvReac Cramps Verified 06/22/23 08:14 - Social History Does the pt smoke?: Yes Smoking Status: Current every day smoker Does the pt drink ETOH?: No Does the pt have substance abuse?: No - Immunizations Immunizations are current?: Yes - POLST Patient has POLST: No PD ED PE NORMAL - Vitals Vital signs reviewed: Yes - General General: Alert and oriented X 3, No acute distress, Well developed/nourished - HEENT HEENT: Atraumatic, PERRL, EOMI, Ears normal, Moist mucous membranes - Neck Neck: Supple, no meningeal sign, No JVD - Cardiac Cardiac: RRR, No murmur - Respiratory Respiratory: No respiratory distress, Clear bilaterally - Abdomen Abdomen: Normal bowel sounds, Non tender - Male Male : Deferred - Rectal Rectal: Deferred - Derm Derm: Normal color - Extremities Extremities: No deformity Results - Vitals Vitals: Vital Signs - 24 hr 06/22/23 08:12 Temperature 36.7 C Heart Rate 73 Respiratory 20 Rate Blood Pressure 132/87 H O2 Saturation 99 Oxygen O2 Source Room air PD Medical Decision Making - ED course Complexity details: considered differential, d/w patient ED course: Patient 23-year-old male presenting to the emergency department with 3-4 days cough, congestion, nausea, vomiting. Multiple family members similar having similar symptoms. Afebrile, he medically stable on arrival to the emergency department. Clear aeration in all lung escobar. No indications sepsis, severe bacterial infection. Patient otherwise well-appearing. Most likely etiology given the context of his symptoms is a viral illness. Was offered respiratory viral swab which was performed here in the emergency department. Will discharge with medication for symptomatic management, work note. Will encourage follow-up with primary care. Also encouraged that they follow-up with the [facility] for results of their respiratory viral swab. Clear return precautions given. Departure - Departure Disposition: 01 Home, Self Care Clinical Impression: Viral illness Instructions: ED Viral Syndrome Prescriptions: Ibuprofen [Motrin] 800 mg PO Q8H PRN #30 tablet PRN Reason: PAIN &/OR FEVER Pseudoephedrine HCl [Sudafed 24-Hour] 240 mg PO DAILY #10 tab Ondansetron Odt [Zofran] 4 mg TL Q6H PRN #10 tablet PRN Reason: Nausea / Vomiting Comments: Thank you for allowing us to care for you today at [facility]. Prescription sent electronically to [facility] in [place]. Have sent prescriptions for medication for nausea as well as the medications to help with your other symptoms to your preferred pharmacy. Please use these as directed. Please drink plenty fluids. Please follow-up with your primary care doctor. If it anytime you have new or worsening symptoms please not hesitate to return. Forms: PCP List, Activity restrictions
[2023-06-22 09:53] LABS: B. PARAPERTUSSIS- RESP PCR PAN NOT DETECTED; B. PERTUSSIS- RESP PCR PANEL NOT DETECTED; C. PNEUMONIAE- RESP PCR PANEL NOT DETECTED; CORONAVIRUS 229E-RESP PCR NOT DETECTED; CORONAVIRUS HKU1-RESP PCR NOT DETECTED; CORONAVIRUS NL63-RESP PCR NOT DETECTED; CORONAVIRUS OC43-RESP PCR NOT DETECTED; HUMAN METAPNEUMOVIRUS NOT DETECTED; INFLUENZA A- RESP PCR PANEL NOT DETECTED; INFLUENZA B - RESP PCR PANEL NOT DETECTED; M. PNEUMONIAE- RESP PCR PANEL NOT DETECTED; PARAINFLUENZA VIRUS 1 NOT DETECTED; PARAINFLUENZA VIRUS 2 NOT DETECTED; PARAINFLUENZA VIRUS 3 DETECTED; PARAINFLUENZA VIRUS 4 NOT DETECTED; RHINOVIRUS/ENTEROVIRUS NOT DETECTED; RSV- RESP PCR PANEL NOT DETECTED; SARS-CoV-2 -RESP PCR PANEL NOT DETECTED
== END 2023-06-22 09:02 | disposition home or self-care (01) ==
LOC: ED 08:04
DX: B34.9 Viral infection, unspecified (principal); F17.200 Nicotine dependence, unspecified, uncomplicated; Z11.52 Encounter for screening for COVID-19
CPT/HCPCS: 87633; 99283

== ENCOUNTER 2023-07-02 03:47 | Emergency (ER) | payer OTHER ==
[2023-07-02 04:08] VITALS: BP 141/86; O2SAT 99
--- NOTE | 2023-07-02 04:21 | ED Physician Documentation ---
History of Present Illness - Stated complaint Stated Complaint: HEADACHE/CHEST PX/WEAKNESS - Chief complaint Chief Complaint: General - History obtained from History obtained from: Patient - Additonal information Additional information: 23-year-old man with history of GERD, smoker, multiple recent ER visits for viral symptoms (May, June 21parainfluenza 2) presents with nonbloody nonbilious nausea and vomiting for the past 3 days with diarrhea That is nonbloody. Also with bodyaches, headache. Denies fever or abdominal pain. Denies urinary symptoms. PD PAST MEDICAL HISTORY - Past Medical History Past Medical History: Yes Respiratory: Pneumonia, Tuberculosis GI: GERD Psych: Depression, Anxiety, Other - Past Surgical History Past Surgical History: No - Present Medications Home Medications: Ambulatory Orders Medication Instructions Recorded Confirmed Ondansetron Odt [Zofran Odt] 4 mg TL Q6H PRN #10 tablet 07/02/23 - Allergies Allergies/Adverse Reactions: Allergies Allergy/AdvReac Type Severity Reaction Status Date / Time lactose AdvReac Cramps Verified 07/02/23 03:58 - Social History Does the pt smoke?: Yes Smoking Status: Current every day smoker Does the pt drink ETOH?: Yes ETOH Use: Wine, Liquor Does the pt have substance abuse?: No - Immunizations Immunizations are current?: Yes - POLST Patient has POLST: No PD ED PE NORMAL - Vitals Vital signs reviewed: Yes - General General: Alert and oriented X 3, No acute distress, Well developed/nourished - HEENT HEENT: Atraumatic, PERRL, EOMI, Moist mucous membranes, Pharynx benign - Neck Neck: Supple, no meningeal sign - Cardiac Cardiac: RRR - Respiratory Respiratory: No respiratory distress, Clear bilaterally - Abdomen Abdomen: Non tender, Non distended - Back Back: No CVA TTP - Derm Derm: Normal color, Warm and dry Results - Vitals Vitals: Vital Signs - 24 hr 07/02/23 03:50 Temperature 36.8 C Heart Rate 95 Respiratory 16 Rate Blood Pressure 141/86 H O2 Saturation 99 Oxygen O2 Source Room air PD Medical Decision Making - ED course ED course: 23-year-old man with recurrent past ED visits for viral symptoms presents with vomiting and diarrhea for the past 3 days along with bodyaches, headache and insomnia. Symptomatic care provided in the ED and he is tolerating p.o. Plan to follow-up outpatient with PCM. Return precautions given. Departure - Departure Disposition: 01 Home, Self Care Clinical Impression: Vomiting, Diarrhea Condition: Stable Instructions: ED Vomiting Diarrhea Nonspecific Ad Prescriptions: Ondansetron Odt [Zofran Odt] 4 mg TL Q6H PRN #10 tablet PRN Reason: Nausea / Vomiting Comments: You were seen in the emergency department for vomiting and diarrhea as well as headache. Prescription for zofran sent to [facility] electronically. Please follow-up with your primary care provider and return to the emergency department if you have any new or worsening symptoms or other concerns. Forms: PCP List, Activity restrictions
[2023-07-02] MEDS: KETOROLAC 30 MG/ML VIAL IM STA (04:23)
[2023-07-02] MEDS: ONDANSETRON ODT 4 MG Prepack 2 TL STA (04:24)
== END 2023-07-02 04:45 | disposition home or self-care (01) ==
LOC: ED 03:47
DX: R19.7 Diarrhea, unspecified (principal); R11.10 Vomiting, unspecified; K21.9 Gastro-esophageal reflux disease without esophagitis; F17.200 Nicotine dependence, unspecified, uncomplicated
CPT/HCPCS: 96372; 99283

== ENCOUNTER 2023-11-02 22:42 | Emergency (ER) | payer SELFPAY ==
[2023-11-02 22:53] VITALS: O2SAT 99
[2023-11-02 23:17] VITALS: BP 131/91
--- NOTE | 2023-11-02 23:25 | ED Physician Documentation ---
PD HPI LOWER EXT INJURY - Stated complaint Stated Complaint: RT FOOT PX - Chief complaint Chief Complaint: Trauma Ext - History obtained from History obtained from: Patient - Additional information Additional information: HPI from patient. Patient complains of right ankle and right foot pain, sudden onset approximately 5 PM today. Patient was walking outside of a friend's house when he stepped on a rock, causing sudden inversion of his right ankle. Pain is exacerbated with palpation (limited to the lateral aspect of the ankle and forefoot), and weight- bearing. PD PAST MEDICAL HISTORY - Past Medical History Past Medical History: Yes Respiratory: Pneumonia, Tuberculosis GI: GERD Psych: Depression, Anxiety, Other - Past Surgical History Past Surgical History: No - Present Medications Home Medications: Ambulatory Orders Medication Instructions Recorded Confirmed Ondansetron Odt [Zofran Odt] 4 mg TL Q6H PRN #10 tablet 07/02/23 - Allergies Allergies/Adverse Reactions: Allergies Allergy/AdvReac Type Severity Reaction Status Date / Time lactose AdvReac Cramps Verified 11/02/23 22:45 - Social History Does the pt smoke?: Yes Smoking Status: Current every day smoker Does the pt drink ETOH?: Yes Does the pt have substance abuse?: No - Immunizations Immunizations are current?: Yes - POLST Patient has POLST: No PD ED PE NORMAL - Vitals Vital signs reviewed: Yes - General General: Alert and oriented X 3, No acute distress, Well developed/nourished - Neuro Neuro: No motor deficit, No sensory deficit PD ED PE EXPANDED - Extremities Extremities: Pedal Pulses Present, Other (moderate swelling surrounding right ankle at lateral malleolus. mild TTP right lateral malleolus but significant TTP lateral malleolus) Results - Vitals Vitals: Vital Signs - 24 hr 11/02/23 11/02/23 22:45 23:04 Temperature 36.8 C Heart Rate 96 81 Respiratory 16 20 Rate Blood Pressure 144/73 H 131/91 H O2 Saturation 99 99 Oxygen O2 Source Room air - Rads (name of study) right ankle xrays Relevant Findings:: Prelim report reviewed, See rad report right foot xrays Relevant Findings:: Prelim report reviewed, See rad report PD Medical Decision Making - ED course Complexity details: reviewed results, considered differential, d/w patient ED course: Plain-film x-rays of the right foot and ankle are unremarkable aside from soft tissue swelling adjacent to the lateral malleolus. Patient is provided crutches to minimize nonweightbearing and placed in an air-cast splint. X-ray results, diagnosis of sprain, expected course of symptoms were all discussed with the patient. Advised to seek follow-up with PCP within 5 to 7 days. Return precautions were reviewed. Patient is given 800 mg ibuprofen after we discussed options for analgesia. Departure - Departure Disposition: 01 Home, Self Care Clinical Impression: Right ankle sprain Condition: Good Instructions: ED Sprain Ankle Comments: There is no evidence of fracture nor dislocation injury on the xrays; there is obvious soft-tissue swelling on the xrays, as is evidence on the physical exam. This combination findings (ankle injury with swelling but normal x-rays) constitutes the diagnosis of sprained ankle. Use the crutches and splint for the next 5 to 7 days. This should help speed the healing by minimizing weightbearing and keeping the ankle relatively immobilized. I recommend you contact your primary care provider's office in the morning when they open to arrange for a follow-up appointment, ideally for the end of this week or early next week for reevaluation. For pain, you can take ibuprofen (afsw-gum-vowagir medication, follow label directions). Discharge Date/Time: 11/03/23 00:16
--- NOTE | 2023-11-02 23:39 | XRAY Report ---
PROCEDURE: Ankle 3+V RT INDICATIONS: Trauma TECHNIQUE: 3 views of the ankle were acquired. COMPARISON: None. FINDINGS: Bones: No fractures or dislocations. Ankle mortise is normally aligned. No suspicious bony lesions . Soft tissues: No tibiotalar joint effusion. Achilles tendon appears normal. Moderate lateral malle olus soft tissue edema. IMPRESSION: Lateral malleolus soft tissue swelling without underlying fracture or dislocation. If there is persistent clinical concern for a radiographically occult fracture, recommend immobilizat ion and repeat imaging in 10 to 14 days. Reviewed by: Gregg Huynh MD on 11/02/2023 11:38 PM PDT Approved by: Gregg Huynh MD on 11/02/2023 11:38 PM PDT Station ID: [id number]
--- NOTE | 2023-11-02 23:40 | XRAY Report ---
PROCEDURE: Foot 3+V RT INDICATIONS: Trauma TECHNIQUE: 3 views of the foot were acquired. COMPARISON: None. FINDINGS: Bones: No fractures or dislocations. No suspicious bony lesions. Soft tissues: No tibiotalar joint effusion. Achilles tendon appears normal. IMPRESSION: No acute bony abnormality. If there is persistent clinical concern for a radiographically occult fracture, recommend immobilizat ion and repeat imaging in 10 to 14 days. Reviewed by: Gregg Huynh MD on 11/02/2023 11:38 PM PDT Approved by: Gregg Huynh MD on 11/02/2023 11:38 PM PDT Station ID: [id number]
[2023-11-03] MEDS: IBUPROFEN 800 MG TABLET PO STA (00:08)
== END 2023-11-03 00:16 | disposition home or self-care (01) ==
LOC: ED 22:42
DX: S93.401A Sprain of unspecified ligament of right ankle, initial encounter (principal); X50.1XXA Overexertion from prolonged static or awkward postures, initial encounter; F17.200 Nicotine dependence, unspecified, uncomplicated
CPT/HCPCS: 73610; 73630; 99283; A9270